=== PATIENT | male | born 1940 | race Caucasian/White ===

== ENCOUNTER 2018-10-05 19:12 | Emergency (ER) | payer MEDICARE ==
[~2018-10-05] VITALS: Ht 180.3 cm; Wt 86.2 kg
[2018-10-05] MEDS ORDERED: Aspir 8181 MG PO (20:56)
[2018-10-05] MEDS ORDERED: Pacerone100 MG PO (20:56)
[2018-10-05] MEDS ORDERED: TAMS.4ER PO (20:56)
[2018-10-05] MEDS ORDERED: DOCU100 PO (20:56)
[2018-10-05] MEDS ORDERED: INSULANPEN SC (20:57)
[2018-10-05] MEDS ORDERED: METCAR500 PO (20:58)
[2018-10-05] MEDS ORDERED: ENOX40I SC (20:58)
[2018-10-05] MEDS ORDERED: Novolog100 UNIT/2 (20:59)
[2018-10-05] MEDS ORDERED: TRAM50 PO (21:00)
[2018-10-05] MEDS ORDERED: [UNRECOGNIZED DRUG - CODE] IV (21:00)
== END 2018-10-05 22:13 | disposition home or self-care (01) ==
LOC: ER 19:12
DX: R07.81 Pleurodynia (principal); Z79.899 Other long term (current) drug therapy; Z79.82 Long term (current) use of aspirin; Z79.4 Long term (current) use of insulin; Z88.0 Allergy status to penicillin; E11.9 Type 2 diabetes mellitus without complications; I48.91 Unspecified atrial fibrillation; Z87.891 Personal history of nicotine dependence
CPT/HCPCS: 71046; 99283-25